=== PATIENT | male | born 1990 | race African-American/Black ===

== ENCOUNTER 2017-07-17 13:27 | Emergency (ER) | payer OTHER ==
[2017-07-17 13:40] VITALS: BP 119/74; PULSE 90; RESP 18; TEMP 98.3
--- NOTE | 2017-07-17 14:20 | ED ---
Skin/Abscess/FB HPI - General Chief complaint: Skin/Abscess/Foreign Body Stated complaint: Facial Swelling Time Seen by Provider: 07/17/17 13:43 Source: patient, RN notes reviewed, old records reviewed Mode of arrival: ambulatory Limitations: no limitations - History of Present Illness Initial comments: Patient is a 26-year-old male with a history of acne presents with swelling over his forehead. Patient states that he felt that he had a pimple yesterday and scratchy. He states that today he has not noticed significant swelling over the forehead. He denies any fever or chills.Patient denies any recent fever, chills, shortness of breath, chest pain, back pain, abdominal pain, nausea vomiting, numbness or tingling, dysuria or hematuria, constipation or diarrhea, headaches or visual changes, or any other current symptoms - Related Data Previous Rx's Medication Instructions Recorded Cephalexin [Keflex] 500 mg PO Q6HR #28 cap 07/17/17 Sulfamethox-Tmp 800-160Mg [Bactrim 2 tab PO Q12HR #28 tab 07/17/17 DS 800-160 mg] Allergies Allergy/AdvReac Type Severity Reaction Status Date / Time No Known Allergies Allergy Verified 07/17/17 13:40 Review of Systems ROS Statement: Those systems with pertinent positive or pertinent negative responses have been documented in the HPI. ROS Other: All systems not noted in ROS Statement are negative. Past Medical History Past Medical History: No Reported History History of Any Multi-Drug Resistant Organisms: None Reported Past Surgical History: No Surgical Hx Reported Past Psychological History: No Psychological Hx Reported Smoking Status: Current every day smoker Past Alcohol Use History: Occasional Past Drug Use History: Marijuana General Exam - General Exam Comments Initial Comments: Well-appearing 26-year-old male. No significant distress. he is - [place] General: Well appearing, well nourished, in no distress. Oriented x 3, normal mood and affect . Ambulating without difficulty. Skin: Good turgor, no rash, unusual bruising or prominent lesions Hair: Normal texture and distribution. HEENT: Head: Normocephalic, Patient has swelling over the anterior aspect of the forehead. No palpable drainable abscesses felt. Eyes: Visual acuity intact, conjunctiva clear, sclera non-icteric, EOM intact, PERRL. Ears: EACs clear, TMs translucent & cone of light visualized. hearing intact. Nose: No external lesions, mucosa non-inflamed, septum and turbinates normal Mouth: Mucous membranes moist, no mucosal lesions. Teeth/Gums: No obvious caries or periodontal disease. No gingival inflammation or significant resorption. Pharynx: Mucosa non-inflamed, no tonsillar hypertrophy or exudate Neck: Supple, without lesions, bruits, or adenopathy, thyroid non-enlarged and non-tender Heart: No cardiomegaly or thrills; regular rate and rhythm, no murmur or gallop Lungs: Clear to auscultation and percussion Limitations: no limitations Course Vital Signs 07/17/17 13:38 Temperature 98.3 F Pulse Rate 90 Respiratory 18 Rate Blood Pressure 119/74 O2 Sat by Pulse 99 Oximetry Medical Decision Making - Medical Decision Making Patient is a 26-year-old male presents emergency department today she clean of swelling over his forehead. He has a history of acne. He states he scratched a pimple yesterday. Patient may have a superficial cellulitis or starting of an abscess. No palpable area to drain at this time. I discussed case with Dr. Mcgee. He also examined the Patient. We'll start the Patient on 2 antibiotics. Discussed appropriate follow-up. All questions answered return parameters were discussed. Disposition Clinical Impression: Abscess of forehead Disposition: HOME SELF-CARE Condition: Good Instructions: Abscess (ED) Additional Instructions: Warm compresses over the area. Follow-up with primary care provider. Take all the antibiotics. Return to the emergency department if any alarming signs or symptoms occur. Prescriptions: Cephalexin [Keflex] 500 mg PO Q6HR #28 cap Sulfamethox-Tmp 800-160Mg [Bactrim DS 800-160 mg] 2 tab PO Q12HR #28 tab Is patient prescribed a controlled substance at d/c from ED?: No When asked, does pt state using other controlled substances?: No If prescribed controlled substance>3 days was MAPS reviewed?: No If opioid is for acute pain is fill amount 7 days or less?: No If Rx opioid, was Start Talking consent form obtained?: No Referrals: None,Stated [Primary Care Provider] - 1-2 days Time of Disposition: 14:19
== END 2017-07-17 14:31 | disposition home or self-care (01) ==
LOC: EC 13:27
DX: L02.01 Cutaneous abscess of face (principal); F17.200 Nicotine dependence, unspecified, uncomplicated
CPT/HCPCS: 99283

== ENCOUNTER 2017-07-19 09:14 | Emergency (ER) | payer OTHER ==
[2017-07-19 09:24] VITALS: RESP 16; TEMP 98.2
--- NOTE | 2017-07-19 09:36 | ED ---
ENT HPI - General Chief complaint: ENT Stated complaint: Eye swollen shut Time Seen by Provider: 07/19/17 09:29 Source: patient, RN notes reviewed, old records reviewed Mode of arrival: ambulatory Limitations: no limitations - History of Present Illness Initial comments: This Patient is a 26-year-old male for reevaluation today, facial swelling. Patient was seen in the emergency department 2 days ago and diagnosed with a forehead abscess. Started on Bactrim and Keflex. Patient states that today he woke up with his left eye swollen shut. Patient states he took 1 day of these antibiotics. Patient reports he has no pain with extraocular eye movements. Denies any fevers. No pain with bright lights in the eye. Patient states that he has had a history of acne.Patient denies any recent fever, chills, shortness of breath, chest pain, back pain, abdominal pain, nausea vomiting, numbness or tingling, dysuria or hematuria, constipation or diarrhea, headaches or visual changes, or any other current symptoms - Related Data Previous Rx's Medication Instructions Recorded Cephalexin [Keflex] 500 mg PO Q6HR #28 cap 07/17/17 Sulfamethox-Tmp 800-160Mg [Bactrim 2 tab PO Q12HR #28 tab 07/17/17 DS 800-160 mg] Allergies Allergy/AdvReac Type Severity Reaction Status Date / Time No Known Allergies Allergy Verified 07/19/17 09:42 Review of Systems ROS Statement: Those systems with pertinent positive or pertinent negative responses have been documented in the HPI. ROS Other: All systems not noted in ROS Statement are negative. Past Medical History Past Medical History: No Reported History History of Any Multi-Drug Resistant Organisms: None Reported Past Surgical History: No Surgical Hx Reported Past Psychological History: No Psychological Hx Reported Smoking Status: Current every day smoker Past Alcohol Use History: Occasional Past Drug Use History: Marijuana General Exam - General Exam Comments Initial Comments: Patient is a 26-year-old male. Alert and oriented. No significant distress. Limitations: no limitations General appearance: alert, in no apparent distress Head exam: Present: normocephalic, normal inspection. Absent: atraumatic ( Evidence of swelling over the forehead. Abscess or area of swelling measures proximally 4 cm x 3 cm.) Eye exam: Present: PERRL, EOMI, periorbital swelling (Sided periorbital swelling.). Absent: normal appearance, scleral icterus, conjunctival injection ENT exam: Present: normal exam, mucous membranes moist Neck exam: Present: normal inspection. Absent: tenderness, meningismus, lymphadenopathy Respiratory exam: Present: normal lung sounds bilaterally. Absent: respiratory distress, wheezes, rales, rhonchi, stridor Cardiovascular Exam: Present: regular rate, normal rhythm, normal heart sounds. Absent: systolic murmur, diastolic murmur, rubs, gallop, clicks GI/Abdominal exam: Present: soft, normal bowel sounds. Absent: distended, tenderness, guarding, rebound, rigid Back exam: Present: normal inspection Neurological exam: Present: alert, oriented X3, CN II-XII intact Psychiatric exam: Present: normal affect, normal mood Skin exam: Present: warm, dry, intact, normal color. Absent: rash Course Vital Signs 07/19/17 09:21 Temperature 98.2 F Pulse Rate 70 Respiratory 16 Rate Blood Pressure 120/80 O2 Sat by Pulse 99 Oximetry Procedures - Incision & Drainage Time Out Performed?: Yes Indication: abscess Site: face (forehead) Size (cm): 2 Anesthetic Used: lidocaine 1% Amount (mLs): 2 I&D Cleaning Method: Iodine Sterile Field Used?: Yes Scalpel Used: #11 Needle Aspiration Performed?: Yes Irrigation Performed?: No I&D Drainage Obtained: Pus, Blood Culture Obtained?: Yes Patient Tolerated Procedure: well, no complications Medical Decision Making - Medical Decision Making Patient is a 26-year-old male chief complaint reevaluation for facial swelling. As a diagnosis of a facial abscess 2 days ago. Has had one day of antibiotics , Keflex and Bactrim. Today he reports some swelling in the left eye. Due to reevaluation decided to perform lab work and do a CT. CT shows evidence of a 2 cm abscess-like lesion over the forehead. Patient has had no fevers or chills. I reviewed the computed tomography scan with Dr. Strickland. Recommended incision and drainage with aspiration. He did use an 18-gauge needle and was able to aspirate some puslike fluid and blood. also completed a small incision from 11 blade in order to remove all the pus and blood. Patient tolerated the procedure well. I discussed his needs to continue to use the antibiotics as previously prescribed. Discussed appropriate follow-up with primary care physician and return parameters were discussed. - Lab Data Result diagrams: 07/19/17 09:53 07/19/17 09:53 Lab Results 07/19/17 07/19/17 Range/Units 09:53 09:53 WBC 11.6 H (3.8-10.6) k/uL RBC 5.12 (4.30-5.90) m/uL Hgb 16.1 (13.0-17.5) gm/dL Hct 48.4 (39.0-53.0) % MCV 94.5 (80.0-100.0) fL MCH 31.5 (25.0-35.0) pg MCHC 33.3 (31.0-37.0) g/dL RDW 13.1 (11.5-15.5) % Plt Count 203 (150-450) k/uL Neutrophils % 72 % Lymphocytes % 20 % Monocytes % 5 % Eosinophils % 2 % Basophils % 0 % Neutrophils # 8.3 H (1.3-7.7) k/uL Lymphocytes # 2.3 (1.0-4.8) k/uL Monocytes # 0.6 (0-1.0) k/uL Eosinophils # 0.2 (0-0.7) k/uL Basophils # 0.0 (0-0.2) k/uL Sodium 140 (137-145) mmol/L Potassium 4.4 (3.5-5.1) mmol/L Chloride 103 (98-107) mmol/L Carbon Dioxide 25 (22-30) mmol/L Anion Gap 12 mmol/L BUN 10 (9-20) mg/dL Creatinine 1.02 (0.66-1.25) mg/dL Est GFR (CKD-EPI)AfAm >90 (>60 ml/min/1.73 sqM) Est GFR (CKD-EPI)NonAf >90 (>60 ml/min/1.73 sqM) Glucose 99 (74-99) mg/dL Calcium 9.7 (8.4-10.2) mg/dL - Radiology Data Radiology results: report reviewed Accommodation findings a ring infected sebaceous cyst or small abscess with surrounding frontalis muscle myositis with no evidence of osteomyelitis. 1.3 x 1.1 x 1 point centimeter demonstrates peripheral enhancement. Internal fluid appears complex and may be hemorrhagic or pertinent tenacious. Neoplasm considered much less likely. Disposition Clinical Impression: Abscess of forehead, Periorbital cellulitis of right eye Disposition: HOME SELF-CARE Condition: Good Instructions: Abscess (ED) Additional Instructions: Patient advised to follow-up with primary care physician. Take the antibiotics as prescribed previously prescribed. To warm compresses over the area. Return to emergency department if any alarming signs or symptoms occur. Is patient prescribed a controlled substance at d/c from ED?: No When asked, does pt state using other controlled substances?: No If prescribed controlled substance>3 days was MAPS reviewed?: No If opioid is for acute pain is fill amount 7 days or less?: No If Rx opioid, was Start Talking consent form obtained?: No Referrals: None,Stated [Primary Care Provider] - 1-2 days Bonnie Milner MD [STAFF PHYSICIAN] - 1-2 days Time of Disposition: 11:14
[2017-07-19] MEDS ORDERED: SODIUM CHLORIDE 0.9% 1,000 ML IV SCH (09:45)
[2017-07-19 10:14] LABS: Basophils % (A) 0 %; Eosinophils # (A) 0.2 k/uL (0-0.7); Eosinophils % (A) 2 %; HCT 48.4 % (39.0-53.0); HGB 16.1 gm/dL (13.0-17.5); Lymphocytes # (A) 2.3 k/uL (1.0-4.8); Lymphocytes % (A) 20 %; MCH 31.5 pg (25.0-35.0); MCHC 33.3 g/dL (31.0-37.0); MCV 94.5 fL (80.0-100.0); Monocytes # (A) 0.6 k/uL (0-1.0); Monocytes % (A) 5 %; Neutrophils # (A) 8.3 k/uL (1.3-7.7); Neutrophils % (A) 72 %; Platelet Count 203 k/uL (150-450); RBC 5.12 m/uL (4.30-5.90); RDW 13.1 % (11.5-15.5); WBC 11.6 k/uL (3.8-10.6)
[2017-07-19 10:35] LABS: Anion Gap 12 mmol/L; Blood Urea Nitrogen 10 mg/dL (9-20); Calcium 9.7 mg/dL (8.4-10.2); Carbon Dioxide 25 mmol/L (22-30); Chloride 103 mmol/L (98-107); Glucose 99 mg/dL (74-99); Potassium 4.4 mmol/L (3.5-5.1); Sodium 140 mmol/L (137-145)
--- NOTE | 2017-07-19 10:39 | CT ---
EXAMINATION TYPE: CT facial bones w con DATE OF EXAM: 07/19/2017 COMPARISON: NONE HISTORY: Patient complains of bump on forehead superior and medial to right eye, and right eye swelli ng. CT DLP: 630.3 mGycm Automated exposure control for dose reduction was used. CONTRAST: CT scan of the facial bones is performed with IV Contrast, patient injected with 100 mL of Isovue 300 . TECHNIQUE: CT scan of the sinuses is performed without contrast, axial images are obtained, coronal r eformatted images are also reviewed. FINDINGS: In the right frontal scalp soft tissues there is a 1.3 x 1.1 x 1.7 cm peripherally enhancin g centrally hypoattenuated lesion with internal Hounsfield units of complex fluid. This does abut the skin surface such as on series 8 image 41 but extends into the subcutaneous tissues and frontal is m usculature. There is no adjacent cortical erosion of the frontal bone. There is thickening and likely myositis of the frontalis and overlying skin thickening with inflammatory fat stranding surrounding this lesion. There is extension of fat stranding and subcutaneous soft tissue into the right periorbi severino region although no post septal inflammatory fat stranding is seen. Orbits are symmetric and lense s are in place. Extraocular muscles are also symmetric. Visualized portions of the brain are suboptimally evaluated due to technique but overall grossly unre markable. Osseous structures appear intact and paranasal sinuses are overall well aerated. IMPRESSION: Combination of findings favoring infected sebaceous cyst or small abscess with surrounding frontalis muscle myositis and no evidence of osteomyelitis. This measures 1.3 x 1.1 x 1.7 cm and demonstrates p eripheral enhancement. Internal fluid appears complex and may be proteinaceous or hemorrhagic. Neopla sm is considered much less likely.
[2017-07-19] MEDS ORDERED: LIDOCAINE 1% INJ 10MG/ML (20 ML MDV) SQ STA (10:51)
[2017-07-19 11:25] VITALS: BP 132/78; PULSE 54
== END 2017-07-19 11:23 | disposition home or self-care (01) ==
LOC: EC 09:14
DX: L02.01 Cutaneous abscess of face (principal); L03.213 Periorbital cellulitis; F17.200 Nicotine dependence, unspecified, uncomplicated
CPT/HCPCS: 36415; 80048; 83605; 85025; 87040; 87070; 87205; 70487; 99284; 10060; 96360; J2001; Q9967